=== PATIENT | female | born 1965 ===

== ENCOUNTER 2016-10-31 11:30 | Emergency (ER) | payer MEDICAID ==
[2016-10-31 12:13] LABS: BASO # 0.1 K/uL (0.0-0.2); BASO % 0.6 % (0.0-2.0); EOS # 0.1 K/uL (0.0-0.7); EOS % 1.3 % (0.0-4.0); HEMATOCRIT 43.2 % (34.0-47.0); LYMPH # 1.6 K/uL (1.0-4.3); LYMPH % 19.7 % (20.0-40.0); MEAN CELL VOLUME 80.1 fL (81.0-99.0); MEAN CORPUSCULAR HEMOGLOBIN 26.9 pg (27.0-31.0); MEAN CORPUSCULAR HGB CONC 33.6 g/dL (33.0-37.0); MONO # 0.5 K/uL (0.0-0.8); MONO % 6.4 % (0.0-10.0); RED CELL DISTRIBUTION WIDTH 14.5 % (11.5-14.5); WHITE BLOOD COUNT 8.1 K/uL (4.8-10.8)
[2016-10-31 12:15] LABS: RBC URINE < 1 /hpf (0-3); URINE BILIRUBIN NEGATIVE (NEGATIVE); URINE BLOOD NEGATIVE (NEGATIVE); URINE COLOR Yellow (YELLOW); URINE GLUCOSE (UA) NORMAL (Normal); URINE KETONE NEGATIVE (NEGATIVE); URINE LEUKOCYTE ESTERASE NEG Leu/uL (Negative); URINE PROTEIN NEGATIVE (NEGATIVE); URINE UROBILINOGEN NORMAL mg/dL (0.2-1.0); WBC URINE < 1 /hpf (0-5)
--- NOTE | 2016-10-31 12:18 | C.PDOC ---
Time Seen by Provider: 10/31/16 11:38 Chief Complaint (Nursing): Abdominal Pain Past Medical History Vital Signs: Last Vital Signs Temp 98.3 F 10/31/16 11:30 Pulse 74 10/31/16 11:30 Resp 20 10/31/16 11:30 BP 116/80 10/31/16 11:30 Pulse Ox 97 10/31/16 11:30 - Medical History PMH: Anxiety, Asthma, HTN, Post Traumatic Stress Disorder, Sleep Apnea - [facility] Procedures ENDOSC POLYPECTOMY OF LG INTEST (06/27/14) Family History: States: Unknown Family Hx - Social History Hx Alcohol Use: No Hx Substance Use: No - Immunization History Hx Tetanus Toxoid Vaccination: No Hx Influenza Vaccination: No Hx Pneumococcal Vaccination: No ED Course And Treatment O2 Sat by Pulse Oximetry: 97 Disposition - Disposition Forms: [employer] (Portuguese)
--- NOTE | 2016-10-31 12:19 | C.PDOC ---
History Of Present Illness 51 yo female w/PMHx of depression come in for evaluation of Left sided posterior chest wall pain developed for past 2 days. Pt reports, pain is sharp, intermittent, with radiation to left anterior chest wall, worse with movement, "breathing, turning" and associated with SOB due to pain. Pt admits, was seen by PMD DR. Raymundo who sent her to ED for further evaluation, Otherwise, pt denies fever, chills, recent illness, headache, dizziness, CP, dyspnea, diaphoresis, cough, wheezing, palpitation, abd. pain, N/V/D, denies weakness, sensory or vascular deficits to B/L UEs. Ambulate to ED, not in any apparent distress. Time Seen by Provider: 10/31/16 11:38 Chief Complaint (Nursing): Abdominal Pain History Per: Patient History/Exam Limitations: no limitations Onset/Duration Of Symptoms: Days (2) Current Symptoms Are (Timing): Still Present Past Medical History Reviewed: Historical Data, Nursing Documentation, Vital Signs Vital Signs: Last Vital Signs Temp 98.3 F 10/31/16 11:30 Pulse 74 10/31/16 11:30 Resp 20 10/31/16 11:30 BP 116/80 10/31/16 11:30 Pulse Ox 97 10/31/16 12:26 - Medical History PMH: Anxiety, Asthma, HTN, Post Traumatic Stress Disorder, Sleep Apnea - [facility] Procedures ENDOSC POLYPECTOMY OF LG INTEST (06/27/14) Family History: States: No Known Family Hx - Social History Hx Alcohol Use: No Hx Substance Use: No - Immunization History Hx Tetanus Toxoid Vaccination: No Hx Influenza Vaccination: No Hx Pneumococcal Vaccination: No Review Of Systems Except As Marked, All Systems Reviewed And Found Negative. Constitutional: Negative for: Fever, Chills Cardiovascular: Positive for: Other ((+) Left sided posterior chest wall pain.) . Negative for: Chest Pain, Palpitations Respiratory: Negative for: Cough, Wheezing Gastrointestinal: Negative for: Nausea, Vomiting, Abdominal Pain, Diarrhea Neurological: Negative for: Weakness, Numbness, Headache, Dizziness Physical Exam - Physical Exam Appears: Well, Non-toxic, No Acute Distress Skin: Normal Color, Warm, Dry, No Rash, No Ecchymosis Head: Normacephalic Eye(s): bilateral: PERRL Nose: No Flaring, No Discharge Oral Mucosa: Moist Throat: No Erythema, No Exudate, No Drooling Neck: Normal ROM, No Midline Cervical Tenderness, No Paracervical Tenderness, No Step Off Deformity, Supple Chest: Symmetrical, Deformity, Tenderness (reproducible tendeness left periscapular area and left anterior chest wall tenderness overlying 2-4 intercostal spaces.), No Ecchymosis, No Subcutaneous Emphysema Cardiovascular: Rhythm Regular, No Friction Rub, No Murmur, No JVD, Other ((-) carotid bruits) Respiratory: No Decreased Breath Sounds, No Accessory Muscle Use, No Rales, No Rhonchi, No Stridor, No Wheezing Gastrointestinal/Abdominal: Soft, No Tenderness, No Distention, No Guarding Back: No CVA Tenderness Extremity: No Pedal Edema, No Deformity, No Swelling Neurological/Psych: Oriented x3, Normal Speech ED Course And Treatment - Laboratory Results Result Diagrams: 10/31/16 12:07 10/31/16 12:07 Lab Interpretation: Normal ECG: Interpreted By Me, Viewed By Me ECG Rhythm: Sinus Rhythm Interpretation Of ECG: SR@73/min, NAD, no acute t wave or ST-T changes. O2 Sat by Pulse Oximetry: 97 (RA ) Pulse Ox Interpretation: Normal - Radiology CXR: Interpreted by Me, Viewed By Me CXR Interpretation: Yes: No Acute Disease Progress Note: On re-evaluation, pt is afebrile, hemodynamicaly stable. non- toxic. PulseOx 97% RA. neck: Supple, (-) JVD, (-) carotid bruits. ENT: no acute findings. Lungs: CTA B/L, BS equal B/L. CVS: (+)S1S2, reg. Abd: benign. Back: (-) CVA tenderness. Diagnostics review and appears normal. EKG , CXR- normal study. Case discussed with pt's PMD and results review, discharge with outpt f/u recommend at present time. results review with pt. Pt has clinical findings c/w chest wall strain. Pt advised. ref. to f/u with PMD in 2-3 days for re-eavl. return to ED if anyw orsening or new changes. Medical Decision Making Medical Decision Making: PLAN: * CXR * EKG * Troponin * D-Dimer * CBC * BMP * HCG * Urinalysis * Valium PO * Toradol IVP Disposition Counseled Patient/Family Regarding: Studies Performed, Diagnosis, Need For Followup, Rx Given - Disposition Referrals: Brittney Raymundo MD [Staff Provider] - Disposition Time: 13:48 Condition: STABLE Additional Instructions: Light duty, avoid physical activity for 1 week Take muscle relaxant as need for pain Follow up with PMD in 2-3 days for re-evaluation. Return to ED if any worsening or new changes. Prescriptions: Methocarbamol [Robaxin] 500 mg PO TID #14 tab Instructions: Chest Wall Pain (ED) Forms: [employer] (Romanian) - Clinical Impression Clinical Impression: Strain of chest wall - PA / MANAGER INPATIENT / Resident Statement MD/DO has reviewed & agrees with the documentation as recorded. - Scribe Statement The provider has reviewed the documentation as recorded by the Scribe Yissel Smalls All medical record entries made by the Scribe were at my direction and personally dictated by me. I have reviewed the chart and agree that the record accurately reflects my personal performance of the history, physical exam, medical decision making, and the department course for this patient. I have also personally directed, reviewed, and agree with the discharge instructions and disposition.
[2016-10-31 12:23] LABS: BLOOD UREA NITROGEN 20 mg/dL (7-17); CALCIUM 10.1 mg/dl (8.6-10.4); CARBON DIOXIDE 24 mmol/L (22-30); CHLORIDE 100 mmol/L (98-107); GFR AFRICAN-AMERICAN > 60; GLUCOSE,RANDOM 130 mg/dL (65-105); SODIUM 139 mmol/L (132-148)
[2016-10-31 12:24] LABS: PARTIAL THROMBOPLASTIN TIME 34 SECONDS (21-34)
[2016-10-31 14:09] VITALS: BP 110/77; PULSE 66; RESP 18; TEMP 97.7; O2SAT 99
--- NOTE | 2016-10-31 15:13 | RAD ---
HISTORY: chest pain COMPARISON: 03/18/2016 TECHNIQUE: Chest PA and lateral FINDINGS: LUNGS: No active pulmonary disease. PLEURA: No significant pleural effusion identified. No pneumothorax apparent. CARDIOVASCULAR: Normal. OSSEOUS STRUCTURES: No significant abnormalities. VISUALIZED UPPER ABDOMEN: Normal. OTHER FINDINGS: None. IMPRESSION: No active disease.
--- NOTE | 2016-11-02 08:01 | CARD ---
APPROVED REPORT EKG Measurement Heart [id number] <Conclusion> Normal sinus rhythm Normal ECG
== END 2016-10-31 14:25 | disposition home or self-care (01) ==
LOC: C.ER 11:30
DX: S29.011A Strain of muscle and tendon of front wall of thorax, initial encounter (principal); X58.XXXA Exposure to other specified factors, initial encounter
CPT/HCPCS: 71020; 80048; 81001; 84484; 84703; 85025; 85378; 85610; 85730; 93005; 96374; 99284; J1885

== ENCOUNTER 2017-01-16 06:56 | Day surgery (SDC) | payer MEDICAID ==
[2017-01-16 07:23] VITALS: BMI 47.6
[2017-01-16 08:11] VITALS: TEMP 97
[2017-01-16] MEDS ORDERED: Propofol 10 mg/ml Inj (20 ML) ONE (09:29)
[2017-01-16] MEDS ORDERED: Midazolam 2 MG/2 ML VIAL ONE (09:29)
[2017-01-16] MEDS ORDERED: Lactated Ringer's 500 ML IV SCH (09:45)
[2017-01-16 10:33] VITALS: RESP 22; O2SAT 99
[2017-01-16 10:35] VITALS: BP 118/65; PULSE 67
== END 2017-01-16 11:15 | disposition home or self-care (01) ==
LOC: C.ENDO 06:56
PROVIDERS: ATTEND Internal Medicine Gastroenterology
DX: K29.50 Unspecified chronic gastritis without bleeding (principal); B96.81 Helicobacter pylori [H. pylori] as the cause of diseases classified elsewhere
CPT/HCPCS: 43239; 84703; 88305; J2250; J2704; J7120

== ENCOUNTER 2018-04-17 13:44 | Outpatient (CLI) | payer MEDICAID | END 2018-04-17 13:45 | disposition home or self-care (01) | LOC: C.MAMMO 13:44 | DX: Z12.31 Encounter for screening mammogram for malignant neoplasm of breast (principal) ==